=== PATIENT | male | born 1965 | race Hispanic/Latino ===

== ENCOUNTER 2018-08-22 05:53 | Day surgery (SDC) | payer MEDICAID ==
[2018-08-20 11:21] LABS: BASOPHILS % (AUTO) 1.4 % (0.0-5.0); EOSINOPHILS % (AUTO) 1.2 % (0.0-8.0); HEMATOCRIT 40.7 % (42-54); LYMPHOCYTES % (AUTO) 24.7 % (21.0-51.0); MEAN CORPUSCULAR HEMOGLOBIN 19.1 pg (27.0-33.0); MEAN CORPUSCULAR HGB CONC 28.1 g/dL (32.0-36.0); MEAN CORPUSCULAR VOLUME 67.9 fL (79-99); NEUTROPHILS % (AUTO) 64.7 % (40.0-77.0); NUCLEATED RED BLOOD CELLS 0.1 % (0.0-0.19); PLATELET COUNT (AUTO) 168 K/uL (130-400); RED BLOOD CELL COUNT(AUTO) 5.99 MIL/uL (4.50-6.20); RED CELL DISTRIBUTION WIDTH 20.7 % (11.0-15.5); WHITE BLOOD COUNT (AUTO) 4.7 K/uL (4.8-10.8)
[2018-08-20 11:36] VITALS: BP 118/69
--- NOTE | 2018-08-20 12:05 | NUR ---
NOTE REPORTED TO DR GUERRERO THAT PT WAS SICK WITH A COLD AND WAS PLACED ON ABX FOR 7 DAYS AND COUGH MEDICATION. LAST DOSE OF ABX WAS LAST WEEK, AND STILL HAS A MINOR COUGH. REPORTED HIS O2 AT 87%. OK TO PROCEED UNLESS PT DOESNT FEEL GOOD, PT STATES HE FEEL FINE. PT TO STOP XERALTO AND TO CONTINUE BETA BLOCKERS .
[2018-08-20 12:16] LABS: INR 1.67 (0.85-1.15); PROTHROMBIN TIME 17.4 SEC (9.6-11.6)
--- NOTE | 2018-08-21 10:28 | NUR ---
NOTE REPORTED PT /INR/PTT TO DR GUERRERO NO FURTHER ORDERS GIVEN. DO NOT NEED TO REPEAT
[2018-08-22] VITALS (9 sets, daily range): BP systolic 111–133; BP diastolic 69–82
[~2018-08-22] VITALS: Ht 167.6 cm; Wt 67.8 kg
[~2018-08-22 05:53] MED LIST: ALPR0.255 PO; ATOR10TA69 PO; BENZ-51 PO; CETI10TA57 PO; DIGO125T87 PO; ESOM40CA54 PO; HYDR-4068 PO; METO50TA18 PO; RIVA20TA PO
[2018-08-22] MEDS ORDERED: SODIUM CHLORIDE 0.9% 1000ML 1,000 ML IV SCH (08:00)
[2018-08-22] MEDS ORDERED: LIDOCAINE HCL 2% 20ML ONE (10:23)
[2018-08-22] MEDS ORDERED: MIDAZOLAM HCL 1 MG/ML 2ML VIAL ONE (10:23)
[2018-08-22] MEDS ORDERED: MEPERIDINE-PF 25 MG/ML SYG ONE (10:23)
[2018-08-22] MEDS ORDERED: HEPARIN SODIUM 1000UNIT/ML 10ML VIAL ONE (10:55)
[2018-08-22] MEDS ORDERED: PROTAMINE SULFATE 10 MG/ML 25ML VIAL IV ONE (13:22)
--- NOTE | 2018-08-22 17:00 | NUR ---
PT discharged home, tolerating fluids, voiding well, ambulating well with stand-by assistance. Pt denies any pain, nausea, dizziness, angina, or shortness of breath. Pt and SO deny any further questions at this time. Emergency and routine care of groin site care given. Pt instructed to observe for signs of atrial flutter and to notify Dr. Chan if any present.
[2018-08-22] MEDS ORDERED: APIXABAN 5 MG TABLET PO SCH (20:00)
== END 2018-08-22 17:30 | disposition home or self-care (01) ==
LOC: DAH 05:53
PROVIDERS: ATTEND Internal Medicine Cardiovascular Disease
DX: I48.92 Unspecified atrial flutter (principal); I49.8 Other specified cardiac arrhythmias; I10 Essential (primary) hypertension; E78.5 Hyperlipidemia, unspecified; Q21.3 Tetralogy of Fallot; Z86.73 Personal history of transient ischemic attack (TIA), and cerebral infarction without residual deficits; D75.1 Secondary polycythemia; Z68.30 Body mass index [BMI] 30.0-30.9, adult; Z79.899 Other long term (current) drug therapy; Z79.01 Long term (current) use of anticoagulants; Z88.8 Allergy status to other drugs, medicaments and biological substances; I44.0 Atrioventricular block, first degree
CPT/HCPCS: 36415 ×2; 80048; 85025; 85347 ×6; 85610; 85730; 93005; 93613; 93621; 93653; A4606; A4649; C1730 ×2; C1732 ×2; C1893; C1894 ×2; J1644 ×2; J2175; J2250; J2720; J3490; J7030; 99156; 99157